=== PATIENT | female | born 1975 | race Caucasian/White ===

== ENCOUNTER 2017-12-23 11:16 | Emergency (ER) | payer MEDICARE, OTHER ==
[~2017-12-23] VITALS: Ht 170.2 cm; Wt 79.4 kg
[~2017-12-23 11:16] MED LIST: ABILIFY; ARIP10 PO; ARIP15 PO; CEPH500 PO; DIAZ2 PO; FLUO10 PO; HYDHCL25 PO; HYDROXYZINE; PHENY100ER PO; PHENYTOIN; PROM25 PO; PROM25S PR; RXOXYACE PO; SULTRIDS PO; TRAZ50 PO
[2017-12-23] MEDS ORDERED: Keflex500 MG PO (11:53)
[2018-02-17] MEDS ORDERED: MIRALAX17 GM PO (22:20)
== END 2017-12-23 11:58 | disposition home or self-care (01) ==
LOC: ER 11:16
DX: L08.9 Local infection of the skin and subcutaneous tissue, unspecified (principal); S90.935D Unspecified superficial injury of left lesser toe(s), subsequent encounter; F20.9 Schizophrenia, unspecified; F32.9 Major depressive disorder, single episode, unspecified; F41.9 Anxiety disorder, unspecified; Z88.8 Allergy status to other drugs, medicaments and biological substances; F17.200 Nicotine dependence, unspecified, uncomplicated; X58.XXXA Exposure to other specified factors, initial encounter
CPT/HCPCS: 99282

== ENCOUNTER 2018-01-02 08:36 | Emergency (ER) | payer MEDICARE, OTHER ==
[~2018-01-02] VITALS: Ht 170.2 cm; Wt 83.0 kg
[~2018-01-02 08:36] MED LIST changes: +Keflex500 MG PO
[2018-01-02] MEDS ORDERED: LEVSOD50 PO (09:06)
[2018-01-02] MEDS ORDERED: DEXL60CA3 PO (09:08)
[2018-01-02] MEDS ORDERED: PROBIOTIC1 EACH PO (09:08)
[2018-01-02] MEDS ORDERED: Hair, Skin & N1 EACH PO (09:11)
[2018-01-02] MEDS ORDERED: DOCU100 PO (09:12)
[2018-01-02] MEDS ORDERED: CHOL10002 PO (09:12)
[2018-01-02] MEDS ORDERED: NAPR500 PO (09:13)
[2018-01-02] MEDS ORDERED: GABA100 PO (09:14)
[2018-01-02] MEDS ORDERED: LITH300C PO (09:14)
[2018-01-02] MEDS ORDERED: QUET200 PO (09:15)
[2018-01-02] MEDS ORDERED: TRAZ100 PO (09:15)
[2018-01-02] MEDS ORDERED: Bactrim Ds Tab1 EACH PO (09:50)
[2018-02-17] MEDS ORDERED: MIRALAX17 GM PO (22:20)
== END 2018-01-02 10:34 | disposition home or self-care (01) ==
LOC: ER 08:36
DX: M86.9 Osteomyelitis, unspecified (principal); L03.032 Cellulitis of left toe; F32.9 Major depressive disorder, single episode, unspecified; F41.9 Anxiety disorder, unspecified; F20.9 Schizophrenia, unspecified; Z88.8 Allergy status to other drugs, medicaments and biological substances; Z79.899 Other long term (current) drug therapy
CPT/HCPCS: 73660; 99283

== ENCOUNTER 2018-01-04 11:45 | Emergency (ER) | payer MEDICARE, OTHER ==
[~2018-01-04] VITALS: Ht 175.3 cm; Wt 81.7 kg
[~2018-01-04 11:45] MED LIST changes: +Bactrim Ds Tab1 EACH PO; +CHOL10002 PO; +DEXL60CA3 PO; +DOCU100 PO; +GABA100 PO; +Hair, Skin & N1 EACH PO; +LEVSOD50 PO; +LITH300C PO; +NAPR500 PO; +PROBIOTIC1 EACH PO; +QUET200 PO; +TRAZ100 PO
[2018-01-04] MEDS ORDERED: Zofran Odt4 MG SL (12:14)
[2018-02-17] MEDS ORDERED: MIRALAX17 GM PO (22:20)
== END 2018-01-04 12:19 | disposition home or self-care (01) ==
LOC: ER 11:45
DX: L08.9 Local infection of the skin and subcutaneous tissue, unspecified (principal); Z79.899 Other long term (current) drug therapy; F20.9 Schizophrenia, unspecified; F43.10 Post-traumatic stress disorder, unspecified; F32.9 Major depressive disorder, single episode, unspecified; F41.9 Anxiety disorder, unspecified; F17.210 Nicotine dependence, cigarettes, uncomplicated
CPT/HCPCS: 99282

== ENCOUNTER 2018-02-11 22:12 | Emergency (ER) | payer MEDICARE, OTHER ==
[~2018-02-11] VITALS: Ht 170.2 cm; Wt 73.5 kg
[~2018-02-11 22:12] MED LIST changes: +Zofran Odt4 MG SL
[2018-02-11] MEDS ORDERED: MULTI VITAMIN1 EACH PO (22:32)
[2018-02-11] MEDS ORDERED: VITAMIN B-1100 MG PO (22:33)
[2018-02-11] MEDS ORDERED: ACET325 PO (22:35)
[2018-02-11] MEDS ORDERED: LAMO25 PO (22:35)
[2018-02-11] MEDS ORDERED: HYDHCL25 PO (22:35)
[2018-02-11 22:53] LABS: BASOPHILS ABSOLUTE AUTO 0.03 K/mm3 (0.00-0.23); BASOPHILS PERCENT AUTO 1 % (0-2); EOSINOPHILS ABSOLUTE AUTO 0.16 K/mm3 (0.00-0.68); EOSINOPHILS PERCENT AUTO 3 % (0-6); Hematocrit 39.4 % (33.0-51.0); Hemoglobin 12.8 g/dL (11.5-16.0); IMMATURE GRAN ABSOLUTE AUTO 0.02 K/mm3 (0.00-0.10); IMMATURE GRAN PERCENT AUTO 0 % (0-1); LYMPHOCYTES ABSOLUTE AUTO 1.42 K/mm3 (0.84-5.20); LYMPHOCYTES PERCENT AUTO 25 % (21-46); MONOCYTES ABSOLUTE AUTO 0.48 K/mm3 (0.16-1.47); MONOCYTES PERCENT AUTO 8 % (4-13); Mean Corpuscular HGB 32.6 pg (26.0-34.0); Mean Corpuscular HGB Conc 32.5 g/dL (31.5-36.5); Mean Corpuscular Volume 100 fL (80-100); Mean Platelet Volume 9.6 fL (9.1-12.4); NEUTROPHILS ABSOLUTE AUTO 3.62 K/mm3 (1.96-9.15); NEUTROPHILS PERCENT AUTO 63 % (41-73); Platelet Count 219 K/mm3 (150-400); RDW Coefficient Variation 14.6 % (11.7-14.2); RDW Standard Deviation 54.4 fL (35.1-46.3); Red Blood Cell Count 3.93 M/mm3 (3.80-5.20); White Blood Cell Count 5.73 K/mm3 (4.00-11.30)
[2018-02-11 23:10] LABS: Alanine Aminotransfer (ALT/SGP 20 U/L (12-78); Albumin, Blood 4.2 g/dL (3.4-5.0); Albumin/Globulin Ratio 1.3 (0.8-1.8); Alk Phos 72 U/L (50-136); Anion Gap 10 mmol/L (6-16); Aspartate Aminotrans (AST/SGOT 16 U/L (12-37); Bilirubin, Total 0.3 mg/dL (0.1-1.0); Blood Urea Nitrogen 6 mg/dL (8-24); Bun/Creatinine Ratio 9.3 (12.0-20.0); CO2, Blood 21 mmol/L (21-32); Calcium, Blood 8.9 mg/dL (8.5-10.1); Chloride, Blood 109 mmol/L (98-108); Creatinine, Blood 0.65 mg/dL (0.40-1.00); Globulin, Blood 3.2 g/dL (2.2-4.0); Glomerular Filtration Rate >60 (60-); Glucose, Blood 110 mg/dL (70-99); Potassium, Blood 3.6 mmol/L (3.5-5.5); Sodium, Blood 140 mmol/L (136-145); Total Protein, Blood 7.4 g/dL (6.4-8.2)
[2018-02-12 00:28] LABS: Source, Urine Clean Catch
[2018-02-12 00:34] LABS: Bilirubin, Urine Neg (Neg); Blood, Urine 1+ (Neg); Glucose Qualitative, Urine Neg (Neg); Ketones, Urine Neg (Neg); Leukocyte Esterase, Urine 1+ (Neg); Nitrite, Urine Neg (Neg); Protein, Urine Neg (Neg); Specific Gravity, Urine 1.005 (1.003-1.022); Urobilinogen, Urine NORM (Normal)
[2018-02-12 00:41] LABS: Appearance, Urine Clear (Clear); Color, Urine Yellow (P-Yellow); White Blood Cells, Urine 0-2 /hpf (0-5)
[2018-02-12 00:42] LABS: Amorphous Light ([, 0-Heavy]); Bacteria Mod /hpf; Red Blood Cells, Urine 0-2 /hpf (0-2); Squamous Epithelial Cells Few /hpf (Few)
[2018-02-12] MEDS ORDERED: LIDO700A20 TOP (01:17)
[2018-02-12] MEDS ORDERED: NAPR500 PO (01:17)
[2018-02-12] MEDS ORDERED: LOPE2C PO (01:46)
[2018-02-17] MEDS ORDERED: MIRALAX17 GM PO (22:20)
== END 2018-02-12 02:00 | disposition home or self-care (01) ==
LOC: ER 22:12
PROVIDERS: Emergency Medicine
DX: M54.5 Low back pain (principal); R53.83 Other fatigue; R19.7 Diarrhea, unspecified; Z79.899 Other long term (current) drug therapy; F20.9 Schizophrenia, unspecified; F32.9 Major depressive disorder, single episode, unspecified; F41.9 Anxiety disorder, unspecified; F17.210 Nicotine dependence, cigarettes, uncomplicated
CPT/HCPCS: 36415; 51798; 72100; 80053; 81001; 83690; 85025; 87086; 99283

== ENCOUNTER → 2018-03-06 | Outpatient (CLI) | payer MEDICARE, OTHER ==
[~2018-03-06] MED LIST changes: +ACET325 PO; +DIPH50 PO; +LAMO25 PO; +LIDO700A20 TOP; +LOPE2C PO; +MIRALAX17 GM PO; +MULTI VITAMIN1 EACH PO; +VITAMIN B-1100 MG PO
== END | disposition home or self-care (01) ==
LOC: LAB SHORT 17:05 → LAB 17:05
DX: R41.0 Disorientation, unspecified (principal)
CPT/HCPCS: 87086

== ENCOUNTER 2018-03-07 12:14 | Observation (INO) | payer MEDICARE, OTHER ==
[~2018-03-07] VITALS: Ht 170.2 cm; Wt 64.9 kg
[~2018-03-07 12:14] MED LIST changes: -DIPH50 PO
[2018-03-07] MEDS ORDERED: DIPH50 PO (12:33)
[2018-03-07 13:16] LABS: BASOPHILS ABSOLUTE AUTO 0.06 K/mm3 (0.00-0.23); BASOPHILS PERCENT AUTO 1 % (0-2); EOSINOPHILS ABSOLUTE AUTO 0.07 K/mm3 (0.00-0.68); EOSINOPHILS PERCENT AUTO 1 % (0-6); Hematocrit 37.8 % (33.0-51.0); Hemoglobin 12.6 g/dL (11.5-16.0); IMMATURE GRAN ABSOLUTE AUTO 0.02 K/mm3 (0.00-0.10); IMMATURE GRAN PERCENT AUTO 0 % (0-1); LYMPHOCYTES ABSOLUTE AUTO 2.47 K/mm3 (0.84-5.20); LYMPHOCYTES PERCENT AUTO 24 % (21-46); MONOCYTES ABSOLUTE AUTO 0.55 K/mm3 (0.16-1.47); MONOCYTES PERCENT AUTO 5 % (4-13); Mean Corpuscular HGB 32.5 pg (26.0-34.0); Mean Corpuscular HGB Conc 33.3 g/dL (31.5-36.5); Mean Corpuscular Volume 97 fL (80-100); Mean Platelet Volume 10.7 fL (9.1-12.4); NEUTROPHILS ABSOLUTE AUTO 6.95 K/mm3 (1.96-9.15); NEUTROPHILS PERCENT AUTO 69 % (41-73); Platelet Count 223 K/mm3 (150-400); RDW Coefficient Variation 13.9 % (11.7-14.2); RDW Standard Deviation 49.1 fL (35.1-46.3); Red Blood Cell Count 3.88 M/mm3 (3.80-5.20); White Blood Cell Count 10.12 K/mm3 (4.00-11.30)
[2018-03-07 13:34] LABS: Alanine Aminotransfer (ALT/SGP 24 U/L (12-78); Albumin, Blood 4.8 g/dL (3.4-5.0); Albumin/Globulin Ratio 1.6 (0.8-1.8); Alk Phos 71 U/L (50-136); Anion Gap 9 mmol/L (6-16); Aspartate Aminotrans (AST/SGOT 27 U/L (12-37); Bilirubin, Total 0.9 mg/dL (0.1-1.0); Blood Urea Nitrogen 12 mg/dL (8-24); Bun/Creatinine Ratio 14.2 (12.0-20.0); CO2, Blood 26 mmol/L (21-32); Chloride, Blood 100 mmol/L (98-108); Creatinine, Blood 0.85 mg/dL (0.40-1.00); Glomerular Filtration Rate >60 (60-); Glucose, Blood 90 mg/dL (70-99); Potassium, Blood 3.5 mmol/L (3.5-5.5); Sodium, Blood 135 mmol/L (136-145); Total Protein, Blood 7.8 g/dL (6.4-8.2)
[2018-03-07 13:43] LABS: Lithium 1.41 mmol/L (0.60-1.20)
[2018-03-08 05:51] LABS: Lithium 1.07 mmol/L (0.60-1.20)
[2018-03-08 19:13] LABS: Salicylate 4.9 mg/dL (2.8-20.0)
[2018-03-08 19:17] LABS: Acetaminophen, Random <2.0 ug/mL (10.0-30.0)
[2018-03-08 19:48] LABS: U Amphetamine Screen Not Detected; U Barbituate Screen Not Detected; U Benzodiazapine Screen Not Detected; U Buprenorphine Screen Not Detected; U Cannabinoids Screen Not Detected; U Cocaine Screen Not Detected; U Methadone Screen Not Detected; U Methamphetamine Screen Not Detected; U Opiates Screen Not Detected; U Oxycodone Screen Not Detected; U Phencyclidine Screen Not Detected; U Propoxyphene Screen Not Detected
[2018-03-08 23:42] LABS: Source, Urine Catheter
[2018-03-08 23:44] LABS: Bilirubin, Urine Neg (Neg); Blood, Urine Neg (Neg); Glucose Qualitative, Urine Neg (Neg); Ketones, Urine 4+ (Neg); Leukocyte Esterase, Urine 1+ (Neg); Nitrite, Urine Neg (Neg); Protein, Urine 1+ (Neg); Urobilinogen, Urine 1+ (Normal)
[2018-03-08 23:50] LABS: Appearance, Urine Hazy (Clear); Color, Urine Amber (P-Yellow)
[2018-03-08 23:51] LABS: Amorphous Light (0-Heavy); Bacteria Mod /hpf; Mucus Light (0-Heavy); Red Blood Cells, Urine Not Seen /hpf (0-2); Squamous Epithelial Cells Mod /hpf (Few); White Blood Cells, Urine Rare /hpf (0-5)
[2018-03-09 08:42] LABS: Lithium 1.08 mmol/L (0.60-1.20)
== END 2018-03-11 21:15 | disposition home or self-care (01) ==
LOC: ER 12:14 → EOR 12:15
PROVIDERS: Emergency Medicine; Internal Medicine; Psychiatry & Neurology Psychiatry
DX: F32.9 Major depressive disorder, single episode, unspecified (principal); F41.9 Anxiety disorder, unspecified; R45.851 Suicidal ideations; R63.0 Anorexia; F43.10 Post-traumatic stress disorder, unspecified; F20.9 Schizophrenia, unspecified; F17.210 Nicotine dependence, cigarettes, uncomplicated; Z91.14 Patient's other noncompliance with medication regimen; Z79.899 Other long term (current) drug therapy
CPT/HCPCS: 80053; 80178; 81001; 81025; 84443; 85025; 87086; 99285; G0378; G0480; P9612; Q3014